=== PATIENT | male | born 1990 | race African-American/Black ===

== ENCOUNTER 2020-02-15 16:13 | Emergency (ER) | payer OTHER ==
[~2020-02-15] VITALS: Ht 175.3 cm; Wt 69.4 kg
[2020-02-15 17:32] LABS: INR 1.03; PROTHROMBIN TIME 13.7 SECONDS (12.5-14.3)
[2020-02-15 17:33] LABS: PARTIAL THROMBOPLASTIN TIME 24.1 SECONDS (24.2-38.5)
[2020-02-15 17:42] LABS: ALBUMIN 4.2 GM/DL (3.2-5.2); ALT/SGPT 45 U/L (12-78); AMYLASE 73 U/L (25-115); BILIRUBIN,DIRECT 0.1 MG/DL (0.0-0.2); BILIRUBIN,TOTAL 0.3 MG/DL (0.2-1.0); BLOOD UREA NITROGEN 10 MG/DL (7-18); CALCIUM LEVEL 9.9 MG/DL (8.5-10.1); CARBON DIOXIDE LEVEL 31 MEQ/L (21-32); CHLORIDE LEVEL 102 MEQ/L (98-107); CREATININE FOR GFR 1.34 MG/DL (0.70-1.30); GLOMERULAR FILTRATION RATE > 60.0 (>60); GLUCOSE, FASTING 86 MG/DL (70-100); LIPASE 74 U/L (73-393); POTASSIUM SERUM 4.9 MEQ/L (3.5-5.1); SODIUM LEVEL 136 MEQ/L (136-145); TOTAL PROTEIN 8.4 GM/DL (6.4-8.2)
[2020-02-15 17:51] LABS: BASO % 0.3 % (0.0-1.0); EOS % 0.1 % (0.0-3.0); HEMATOCRIT 49.5 % (42.0-52.0); HEMOGLOBIN 14.9 g/dl (13.5-17.5); LYMPH % 11.1 % (24.0-44.0); MEAN CORPUSCULAR HEMOGLOBIN 22.4 pg (27.0-33.0); MEAN CORPUSCULAR HGB CONC 30.1 g/dl (32.0-36.5); MEAN CORPUSCULAR VOLUME 74.5 fl (80.0-96.0); MONO # 0.3 10^3/uL (0.0-0.8); MONO % 3.5 % (0.0-5.0); NEUTROPHILS % 84.8 % (36.0-66.0); PLATELET COUNT, AUTOMATED 263 10^3/uL (150-450); RED BLOOD COUNT 6.64 10^6/uL (4.30-6.10); WHITE BLOOD COUNT 9.4 10^3/uL (4.0-10.0)
[2020-02-15] MEDS ORDERED: KETOROLAC 60MG 2ML VIAL IM ONE (20:00)
--- NOTE | 2020-02-15 21:22 | REPVR ---
PROCEDURE INFORMATION: Exam: CT Abdomen And Pelvis Without Contrast Exam date and time: 02/15/2020 8:38 PM Age: 29 years old Clinical indication: Abdominal pain; Flank; Right; Additional info: R flank pain, stone? TECHNIQUE: Imaging protocol: Computed tomography of the abdomen and pelvis without contrast. Radiation optimization: All CT scans at this facility use at least one of these dose optimization techniques: automated exposure control; mA and/or kV adjustment per patient size (includes targeted exams where dose is matched to clinical indication); or iterative reconstruction. COMPARISON: No relevant prior studies available. FINDINGS: Liver: Normal. No mass. Gallbladder and bile ducts: Normal. No calcified stones. No ductal dilation. Pancreas: Normal. No ductal dilation. Spleen: Normal. No splenomegaly. Adrenals: Normal. No mass. Kidneys and ureters: Normal. No urinary tract calculi. No hydronephrosis. Stomach and bowel: Unremarkable. No obstruction. No mucosal thickening. Appendix: No evidence of appendicitis. Intraperitoneal space: Unremarkable. No free air. No significant fluid collection. Vasculature: Unremarkable. No abdominal aortic aneurysm. Lymph nodes: Unremarkable. No enlarged lymph nodes. Urinary bladder: Unremarkable as visualized. Reproductive: Unremarkable as visualized. Bones/joints: Unremarkable. No acute fracture. Soft tissues: Unremarkable. IMPRESSION: No acute findings. Electronically signed by: Brooks Rosario On 02/15/2020 21:21:29 PM
[2020-02-15 21:45] VITALS: BP 128/65
== END 2020-02-15 21:53 | disposition home or self-care (01) ==
LOC: M ED 16:13
DX: R10.9 Unspecified abdominal pain (principal)
CPT/HCPCS: 36415; 74176; 80048; 80076; 81001; 82150; 83605; 83690; 85025; 85610; 85730; 96372; 99284; J1885

== ENCOUNTER 2020-08-27 14:52 | Emergency (ER) | payer OTHER ==
[~2020-08-27] VITALS: Ht 175.3 cm; Wt 67.7 kg
[2020-08-27] MEDS ORDERED: PROPARACAINE 0.5% OPHTH SOL 15ML OD ONE (15:50)
[2020-08-27] MEDS ORDERED: FLUORESCEIN OPHTH 1 MG STRIP OD ONE (15:50)
[2020-08-27] MEDS ORDERED: OCUF0.25 OP (17:24)
[2020-08-27 17:32] VITALS: BP 132/80
== END 2020-08-27 17:37 | disposition home or self-care (01) ==
LOC: M ED 14:52
DX: T15.11XA Foreign body in conjunctival sac, right eye, initial encounter (principal); W51.XXXA Accidental striking against or bumped into by another person, initial encounter; Y92.39 Other specified sports and athletic area as the place of occurrence of the external cause; Y93.66 Activity, soccer; Y99.8 Other external cause status